=== PATIENT | female | born 1940 | race Caucasian/White ===

== ENCOUNTER → 2017-11-29 | Outpatient (CLI) | payer BC | END | disposition home or self-care (01) | LOC: HKI 11:04 | DX: M17.0 Bilateral primary osteoarthritis of knee (principal) | CPT/HCPCS: G0463 ==

== ENCOUNTER 2017-12-17 10:56 | Inpatient (IN) | payer BC ==
[2017-12-23] MEDS: CEFAZOLIN 2 GM/50 ML (PMX) 50 ML IVPB (06:00)
[2017-12-23] MEDS: TRANEXAMIC ACID 1,000 MG in NS 100 ML INTRA-OP X1 IVPB (06:00)
[2017-12-23] MEDS: LACTATED RINGER'S 1,000 ML IV* (06:00)
[2017-12-23] MEDS: TRANEXAMIC ACID 1,000 MG in NS 100 ML PRE-OP X1 IVPB (06:00)
[2017-12-23] MEDS: DEXAMETHASONE 4 MG/ML 1 ML INJ IV (07:28)
[2017-12-23] MEDS: ACETAMINOPHEN 1000MG/100ML IV 100 ML IVPB (07:29)
[2017-12-23] MEDS: ASPIRIN (EC) 325 MG TAB PO (08:00)
[2017-12-23] MEDS ORDERED: NA PHOSPHATE/BIPHOS 133 ML ENEMA PR (08:00)
[2017-12-23] MEDS ORDERED: NALOXONE (0.4 MG/ML) INJ IV (08:00)
[2017-12-23] MEDS: DOCUSATE SODIUM 100 MG CAP PO (08:00)
[2017-12-23] MEDS: CELECOXIB 100 MG CAP PO ×2 (09:00→22:40)
[2017-12-23] MEDS ORDERED: MIDAZOLAM 1 MG/ML 2 ML INJ (09:09)
[2017-12-23] MEDS ORDERED: morphine SULFATE/PF (10 MG/10 ML) INJ (09:09)
[2017-12-23] MEDS ORDERED: BUPIVACAINE 0.75%/DEXT (SPINAL) 2 ML INJ (09:30)
[2017-12-23] MEDS: POLYMYXIN/BACITRACIN 1L IRRIG IRR (10:08)
[2017-12-23] MEDS ORDERED: hydrALAzine 20 MG INJ (10:09)
[2017-12-23] MEDS ORDERED: METOPROLOL 5 MG INJ (10:09)
[2017-12-23] MEDS ORDERED: FENTAnyl 50 MCG/ML VIAL ×3 (10:13→11:51)
[2017-12-23] MEDS ORDERED: ETOMIDATE 20 MG INJ (11:19)
[2017-12-23] MEDS ORDERED: DEXAMETHASONE 4 MG/ML 1 ML INJ (11:19)
[2017-12-23] MEDS ORDERED: METOCLOPRAMIDE 10 MG INJ (11:19)
[2017-12-23] MEDS ORDERED: ROCURONIUM 50 MG INJ (11:19)
[2017-12-23] MEDS ORDERED: LIDOCAINE 2% (SDV) 5 ML INJ (11:19)
[2017-12-23] MEDS ORDERED: ONDANSETRON 4 MG INJ (11:19)
[2017-12-23] MEDS ORDERED: CEFAZOLIN 1 GM INJ (11:23)
[2017-12-23] MEDS ORDERED: ROPIVACAINE 0.5 % 30 ML VIAL (11:24)
[2017-12-23] MEDS ORDERED: KETOROLAC 30 MG INJ (11:43)
[2017-12-23] MEDS ORDERED: FENTAnyl 50 MCG/ML VIAL IV ×2 (12:30)
[2017-12-23] MEDS ORDERED: hydrALAzine 20 MG INJ IV (12:30)
[2017-12-23] MEDS ORDERED: LORAZEPAM 2 MG INJ IV (12:30)
[2017-12-23] MEDS ORDERED: DIPHENHYDRAMINE 50 MG INJ IV (12:30)
[2017-12-23] MEDS ORDERED: ONDANSETRON 4 MG INJ IV (12:30)
[2017-12-23] MEDS ORDERED: METOCLOPRAMIDE 10 MG INJ IV (12:30)
[2017-12-23] MEDS ORDERED: HYDROmorphONE 1 MG/5 ML IV SYRINGE IV (12:30)
[2017-12-23] MEDS ORDERED: LABETALOL HCL 20MG INJ IV (12:30)
[2017-12-23] MEDS: HYDROmorphONE 1 MG/5 ML IV SYRINGE IV (12:41)
[2017-12-23] MEDS: ONDANSETRON 4 MG INJ IV ×3 (14:00→20:43)
[2017-12-23] MEDS: CEFAZOLIN 1 GM/50 ML (PMX) 50 ML IVPB ×2 (14:11→22:40)
[2017-12-23] MEDS: SOD CHLORIDE 0.9% 1,000 ML IV ×2 (14:11→20:20)
[2017-12-23] MEDS: HYDROmorphONE 2 MG TAB PO ×3 (14:11→22:40)
[2017-12-23] MEDS: FLUTICASONE/VILANTEROL 100-25 INH (22:41)
[2017-12-24] MEDS: ONDANSETRON 4 MG INJ IV (02:00)
[2017-12-24] MEDS: SOD CHLORIDE 0.9% 1,000 ML IV ×2 (04:04→21:20)
[2017-12-24 05:00] LABS: ADD MAN DIFF? NO
[2017-12-24 05:13] LABS: BASOPHILS % 0.2 % (0.0-2.0); EOSINOPHILS % 0.1 % (0.0-7.0); HEMATOCRIT 37.4 % (37.0-47.0); HEMOGLOBIN 11.7 g/dl (12.0-16.0); LYMPHOCYTES # 1.2 10^3/ul (0.8-2.9); LYMPHOCYTES % 11.1 % (15.0-51.0); MEAN CORPUSCULAR HEMOGLOBIN 29.3 pg (29.0-33.0); MEAN CORPUSCULAR HGB CONC 31.3 g/dl (32.0-37.0); MEAN CORPUSCULAR VOLUME 93.5 fl (82.0-101.0); MONOCYTE # 0.9 10^3/ul (0.3-0.9); MONOCYTES % 8.7 % (0.0-11.0); NEUTROPHIL # 8.5 10^3/ul (1.6-7.5); NEUTROPHILS % 79.5 % (39.0-77.0); PLATELET COUNT 275 10^3/UL (140-415); RED CELL DISTRIBUTION WIDTH 14.4 % (11.5-14.5)
[2017-12-24 05:13] LABS: WHITE BLOOD COUNT 10.6 10^3/ul (4.8-10.8)
[2017-12-24 05:58] LABS: ANION GAP 13 (8-16); BLOOD UREA NITROGEN 14 mg/dl (7-20); CARBON DIOXIDE 28 mmol/L (21-31); CHLORIDE 109 mmol/L (97-110); CREATININE 0.71 mg/dl (0.44-1.00); GLUCOSE 112 mg/dl (70-220); POTASSIUM 4.7 mmol/L (3.5-5.1); SODIUM 145 mmol/L (135-144)
[2017-12-24] MEDS: LEVOTHYROXINE 137 MCG TAB PO (06:30)
[2017-12-24] MEDS: PANTOPRAZOLE (EC) 40 MG TAB PO (06:30)
[2017-12-24] MEDS: CEFAZOLIN 1 GM/50 ML (PMX) 50 ML IVPB (06:30)
[2017-12-24] MEDS: HYDROmorphONE 2 MG TAB PO ×2 (06:50→10:31)
[2017-12-24] MEDS: DOCUSATE SODIUM 100 MG CAP PO ×2 (08:53→21:07)
[2017-12-24] MEDS: CELECOXIB 100 MG CAP PO ×2 (08:53→21:07)
[2017-12-24] MEDS: FERROUS FUMARATE (SR) TAB PO ×2 (08:53→21:07)
[2017-12-24] MEDS: ASPIRIN (EC) 325 MG TAB PO (08:54)
[2017-12-24] MEDS: SENNA/DOCUSATE NA (8.6MG/50MG) TAB PO (08:54)
[2017-12-24] MEDS: LOSARTAN 25 MG TAB PO (08:55)
[2017-12-24] MEDS: HYDROmorphONE 4 MG TAB PO ×3 (13:28→21:46)
[2017-12-24] MEDS ORDERED: FLUTICASONE/VILANTEROL 100-25 INH (21:00)
[2017-12-24] MEDS: VILANTEROL INH (21:08)
[2017-12-24] MEDS: FLUTICASONE INH (21:08)
[2017-12-24] MEDS: DIPHENHYDRAMINE 50 MG INJ IV (21:46)
[2017-12-25 05:08] LABS: ADD MAN DIFF? NO
[2017-12-25] MEDS: HYDROmorphONE 4 MG TAB PO ×2 (05:14→09:01)
[2017-12-25] MEDS: PANTOPRAZOLE (EC) 40 MG TAB PO (05:14)
[2017-12-25 05:21] LABS: WHITE BLOOD COUNT 7.8 10^3/ul (4.8-10.8)
[2017-12-25 05:21] LABS: BASOPHIL # 0.1 10^3/ul (0.0-0.1); BASOPHILS % 0.8 % (0.0-2.0); EOSINOPHILS # 0.1 10^3/ul (0.0-0.5); EOSINOPHILS % 0.8 % (0.0-7.0); HEMATOCRIT 36.6 % (37.0-47.0); HEMOGLOBIN 11.6 g/dl (12.0-16.0); LYMPHOCYTES # 0.9 10^3/ul (0.8-2.9); LYMPHOCYTES % 11.4 % (15.0-51.0); MEAN CORPUSCULAR HEMOGLOBIN 29.5 pg (29.0-33.0); MEAN CORPUSCULAR HGB CONC 31.7 g/dl (32.0-37.0); MEAN CORPUSCULAR VOLUME 93.1 fl (82.0-101.0); MEAN PLATELET VOLUME 9.3 fl (7.4-10.4); MONOCYTE # 0.8 10^3/ul (0.3-0.9); MONOCYTES % 10.1 % (0.0-11.0); NEUTROPHILS % 76.6 % (39.0-77.0); PLATELET COUNT 249 10^3/UL (140-415); RED BLOOD COUNT 3.93 10^6/ul (4.20-5.40); RED CELL DISTRIBUTION WIDTH 14.8 % (11.5-14.5)
[2017-12-25 05:48] LABS: ANION GAP 10 (8-16); BLOOD UREA NITROGEN 11 mg/dl (7-20); CALCIUM 8.1 mg/dl (8.4-10.2); CARBON DIOXIDE 31 mmol/L (21-31); CHLORIDE 107 mmol/L (97-110); CREATININE 0.66 mg/dl (0.44-1.00); GLUCOSE 126 mg/dl (70-220); POTASSIUM 4.4 mmol/L (3.5-5.1); SODIUM 144 mmol/L (135-144)
[2017-12-25] MEDS: LEVOTHYROXINE 137 MCG TAB PO (06:51)
[2017-12-25] MEDS: CELECOXIB 100 MG CAP PO ×2 (08:59→21:59)
[2017-12-25] MEDS: LOSARTAN 25 MG TAB PO (09:00)
[2017-12-25] MEDS: DOCUSATE SODIUM 100 MG CAP PO ×2 (09:00→21:58)
[2017-12-25] MEDS: FERROUS FUMARATE (SR) TAB PO ×2 (09:01→21:59)
[2017-12-25] MEDS: ASPIRIN (EC) 325 MG TAB PO (09:01)
[2017-12-25] MEDS: SOD CHLORIDE 0.9% 1,000 ML IV ×2 (09:50→22:20)
[2017-12-25] MEDS: HYDROmorphONE 2 MG TAB PO ×3 (12:56→19:04)
[2017-12-25] MEDS: VILANTEROL INH (21:59)
[2017-12-25] MEDS: FLUTICASONE INH (21:59)
[2017-12-26] MEDS: HYDROmorphONE 2 MG TAB PO ×5 (02:16→21:41)
[2017-12-26 05:04] LABS: ADD MAN DIFF? NO
[2017-12-26 05:20] LABS: WHITE BLOOD COUNT 10.3 10^3/ul (4.8-10.8)
[2017-12-26 05:20] LABS: BASOPHIL # 0.1 10^3/ul (0.0-0.1); BASOPHILS % 0.6 % (0.0-2.0); EOSINOPHILS # 0.2 10^3/ul (0.0-0.5); EOSINOPHILS % 1.9 % (0.0-7.0); HEMATOCRIT 37.7 % (37.0-47.0); HEMOGLOBIN 11.8 g/dl (12.0-16.0); LYMPHOCYTES # 0.8 10^3/ul (0.8-2.9); MEAN CORPUSCULAR HEMOGLOBIN 29.5 pg (29.0-33.0); MEAN CORPUSCULAR HGB CONC 31.3 g/dl (32.0-37.0); MEAN CORPUSCULAR VOLUME 94.3 fl (82.0-101.0); MEAN PLATELET VOLUME 9.2 fl (7.4-10.4); MONOCYTE # 0.9 10^3/ul (0.3-0.9); MONOCYTES % 8.9 % (0.0-11.0); NEUTROPHIL # 8.3 10^3/ul (1.6-7.5); NEUTROPHILS % 80.2 % (39.0-77.0); PLATELET COUNT 276 10^3/UL (140-415); RED CELL DISTRIBUTION WIDTH 14.4 % (11.5-14.5)
[2017-12-26 05:37] LABS: ANION GAP 13 (8-16); BLOOD UREA NITROGEN 9 mg/dl (7-20); CALCIUM 8.4 mg/dl (8.4-10.2); CARBON DIOXIDE 29 mmol/L (21-31); CHLORIDE 105 mmol/L (97-110); CREATININE 0.57 mg/dl (0.44-1.00); GLUCOSE 120 mg/dl (70-220); POTASSIUM 4.2 mmol/L (3.5-5.1); SODIUM 143 mmol/L (135-144)
[2017-12-26] MEDS: PANTOPRAZOLE (EC) 40 MG TAB PO (06:43)
[2017-12-26] MEDS: LEVOTHYROXINE 137 MCG TAB PO (06:47)
[2017-12-26] MEDS: DOCUSATE SODIUM 100 MG CAP PO ×2 (08:34→20:23)
[2017-12-26] MEDS: CELECOXIB 100 MG CAP PO ×2 (08:34→20:23)
[2017-12-26] MEDS: ASPIRIN (EC) 325 MG TAB PO (08:35)
[2017-12-26] MEDS: FERROUS FUMARATE (SR) TAB PO ×2 (08:35→20:22)
[2017-12-26] MEDS: LOSARTAN 25 MG TAB PO (08:35)
[2017-12-26] MEDS: SOD CHLORIDE 0.9% 1,000 ML IV ×2 (08:40→23:20)
[2017-12-26] MEDS: SENNA/DOCUSATE NA (8.6MG/50MG) TAB PO (09:53)
[2017-12-26] MEDS: BETHANECHOL 25 MG TAB PO (09:54)
[2017-12-26 10:27] LABS: ADD UMIC YES; UR ASCORBIC ACID NEGATIVE (NEGATIVE); UR BACTERIA FEW /HPF (NONE SEEN); UR BILIRUBIN (Dip) NEGATIVE (NEGATIVE); UR BLOOD (Dip) 3+ mg/dL (NEGATIVE); UR CLARITY CLEAR (CLEAR); UR COLOR YELLOW (YELLOW); UR GLUCOSE (Dip) 1+ mg/dL (NEGATIVE); UR KETONES (Dip) 1+ mg/dL (NEGATIVE); UR LEUKOCYTE ESTERASE (Dip) NEGATIVE Leu/ul (NEGATIVE); UR MUCUS FEW /HPF (NONE SEEN); UR NITRITE (Dip) NEGATIVE (NEGATIVE); UR RBC 118 /HPF (0-5); UR SPECIFIC GRAVITY (Dip) 1.017 (1.003-1.030); UR TOTAL PROTEIN (Dip) 2+ mg/dl (NEGATIVE); UR UROBILINOGEN (Dip) 1+ mg/dL (NEGATIVE); UR WBC 3 /HPF (0-5)
[2017-12-26] MEDS: BISACODYL 10 MG SUPP PR (17:35)
[2017-12-26] MEDS: MAGNESIUM HYDROXIDE 30ML CUP PO (20:22)
[2017-12-26] MEDS: VILANTEROL INH (20:24)
[2017-12-26] MEDS: FLUTICASONE INH (20:24)
[2017-12-27] MEDS: HYDROmorphONE 2 MG TAB PO ×5 (04:15→21:56)
[2017-12-27 05:12] LABS: ADD MAN DIFF? NO
[2017-12-27 05:28] LABS: WHITE BLOOD COUNT 10.3 10^3/ul (4.8-10.8)
[2017-12-27 05:28] LABS: BASOPHIL # 0.1 10^3/ul (0.0-0.1); BASOPHILS % 0.6 % (0.0-2.0); EOSINOPHILS # 0.3 10^3/ul (0.0-0.5); EOSINOPHILS % 2.8 % (0.0-7.0); HEMATOCRIT 35.5 % (37.0-47.0); HEMOGLOBIN 11.4 g/dl (12.0-16.0); LYMPHOCYTES % 9.8 % (15.0-51.0); MEAN CORPUSCULAR HEMOGLOBIN 29.7 pg (29.0-33.0); MEAN CORPUSCULAR HGB CONC 32.1 g/dl (32.0-37.0); MEAN CORPUSCULAR VOLUME 92.4 fl (82.0-101.0); MEAN PLATELET VOLUME 9.5 fl (7.4-10.4); MONOCYTE # 0.9 10^3/ul (0.3-0.9); MONOCYTES % 8.7 % (0.0-11.0); NEUTROPHILS % 77.6 % (39.0-77.0); PLATELET COUNT 299 10^3/UL (140-415); RED BLOOD COUNT 3.84 10^6/ul (4.20-5.40); RED CELL DISTRIBUTION WIDTH 14.3 % (11.5-14.5)
[2017-12-27] MEDS: LEVOTHYROXINE 137 MCG TAB PO (05:53)
[2017-12-27] MEDS: PANTOPRAZOLE (EC) 40 MG TAB PO (05:53)
[2017-12-27 05:59] LABS: ANION GAP 10 (8-16); BLOOD UREA NITROGEN 13 mg/dl (7-20); CALCIUM 8.3 mg/dl (8.4-10.2); CARBON DIOXIDE 29 mmol/L (21-31); CHLORIDE 103 mmol/L (97-110); CREATININE 0.52 mg/dl (0.44-1.00); GLUCOSE 129 mg/dl (70-220); POTASSIUM 4.1 mmol/L (3.5-5.1); SODIUM 138 mmol/L (135-144)
[2017-12-27] MEDS: CELECOXIB 100 MG CAP PO ×2 (09:25→20:39)
[2017-12-27] MEDS: ASPIRIN (EC) 325 MG TAB PO (09:25)
[2017-12-27] MEDS: FERROUS FUMARATE (SR) TAB PO ×2 (09:25→20:39)
[2017-12-27] MEDS: LOSARTAN 25 MG TAB PO (09:26)
[2017-12-27] MEDS: SOD CHLORIDE 0.9% 1,000 ML IV (11:50)
[2017-12-27] MEDS: ATORVASTATIN 80 MG TAB PO (13:31)
[2017-12-27] MEDS: VILANTEROL INH (20:41)
[2017-12-27] MEDS: FLUTICASONE INH (20:41)
[2017-12-28] MEDS: SOD CHLORIDE 0.9% 1,000 ML IV ×2 (00:20→12:50)
[2017-12-28 04:49] LABS: ADD MAN DIFF? NO
[2017-12-28 04:51] LABS: BASOPHIL # 0.1 10^3/ul (0.0-0.1); BASOPHILS % 0.7 % (0.0-2.0); EOSINOPHILS # 0.4 10^3/ul (0.0-0.5); EOSINOPHILS % 4.4 % (0.0-7.0); HEMATOCRIT 36.7 % (37.0-47.0); HEMOGLOBIN 11.8 g/dl (12.0-16.0); LYMPHOCYTES % 11.1 % (15.0-51.0); MEAN CORPUSCULAR HEMOGLOBIN 29.9 pg (29.0-33.0); MEAN CORPUSCULAR HGB CONC 32.2 g/dl (32.0-37.0); MEAN CORPUSCULAR VOLUME 93.1 fl (82.0-101.0); MEAN PLATELET VOLUME 8.9 fl (7.4-10.4); MONOCYTE # 0.8 10^3/ul (0.3-0.9); MONOCYTES % 9.2 % (0.0-11.0); NEUTROPHIL # 6.8 10^3/ul (1.6-7.5); NEUTROPHILS % 74.2 % (39.0-77.0); PLATELET COUNT 343 10^3/UL (140-415); RED BLOOD COUNT 3.94 10^6/ul (4.20-5.40); RED CELL DISTRIBUTION WIDTH 14.3 % (11.5-14.5)
[2017-12-28 04:51] LABS: WHITE BLOOD COUNT 9.2 10^3/ul (4.8-10.8)
[2017-12-28 05:15] LABS: ANION GAP 9 (8-16); BLOOD UREA NITROGEN 11 mg/dl (7-20); CALCIUM 8.7 mg/dl (8.4-10.2); CARBON DIOXIDE 30 mmol/L (21-31); CHLORIDE 105 mmol/L (97-110); CREATININE 0.59 mg/dl (0.44-1.00); GLUCOSE 131 mg/dl (70-220); POTASSIUM 4.3 mmol/L (3.5-5.1); SODIUM 140 mmol/L (135-144)
[2017-12-28] MEDS: PANTOPRAZOLE (EC) 40 MG TAB PO (06:18)
[2017-12-28] MEDS ORDERED: PATIENT'S OWN MEDICATION PO (07:00)
[2017-12-28] MEDS ORDERED: LEVOTHYROXINE 137 MCG TAB PO (07:00)
[2017-12-28] MEDS: FERROUS FUMARATE (SR) TAB PO (08:11)
[2017-12-28] MEDS: LEVOTHYROXINE 137 MCG PO (08:11)
[2017-12-28] MEDS: LOSARTAN 25 MG TAB PO (08:12)
[2017-12-28] MEDS: ATORVASTATIN 80 MG TAB PO (08:12)
[2017-12-28] MEDS: ASPIRIN (EC) 325 MG TAB PO (08:12)
[2017-12-28] MEDS: CELECOXIB 100 MG CAP PO (08:13)
[2017-12-28] MEDS: HYDROmorphONE 2 MG TAB PO ×2 (09:02→12:46)
[2017-12-28] MEDS: ACETAMINOPHEN 500 MG TAB PO (14:55)
[2017-12-28] MEDS ORDERED: CELECOXIB 200 MG CAP PO (21:00)
== END 2017-12-28 16:55 | disposition home or self-care (01) | DRG 470 ==
LOC: REC 10:56 → MS1 12-23 13:44
PROC: 0SRD0JZ Replacement of Left Knee Joint with Synthetic Substitute, Open Approach (ICD-10-PCS; principal; 2017-12-23 08:30)
DX: M17.12 Unilateral primary osteoarthritis, left knee (principal); J45.30 Mild persistent asthma, uncomplicated; I10 Essential (primary) hypertension; E78.5 Hyperlipidemia, unspecified; E03.9 Hypothyroidism, unspecified; E66.01 Morbid (severe) obesity due to excess calories; Z68.36 Body mass index [BMI] 36.0-36.9, adult; J45.909 Unspecified asthma, uncomplicated
CPT/HCPCS: 73560; 80048; 81001; 85025; 86850; 86900; 86901; 87081; 87086; 97110; 97116; 97161; 97167; 97530; 97535; 99217

== ENCOUNTER → 2017-12-20 | Outpatient (CLI) | payer BC | END | disposition home or self-care (01) | LOC: HKI 11:15 | DX: Z01.818 Encounter for other preprocedural examination (principal) | CPT/HCPCS: G0463 ==

== ENCOUNTER → 2018-01-03 | Outpatient (CLI) | payer BC | END | disposition home or self-care (01) | LOC: HKI 11:28 | DX: Z47.1 Aftercare following joint replacement surgery (principal); Z96.652 Presence of left artificial knee joint | CPT/HCPCS: 73560; 73560-LT ==

== ENCOUNTER → 2018-01-31 | Outpatient (CLI) | payer BC | END | disposition home or self-care (01) | LOC: HKI 11:21 | DX: Z09 Encounter for follow-up examination after completed treatment for conditions other than malignant neoplasm (principal); Z96.652 Presence of left artificial knee joint | CPT/HCPCS: 73560; 73560-LT ==

== ENCOUNTER → 2018-06-27 | Outpatient (CLI) | payer BC | END | disposition home or self-care (01) | LOC: HKI 11:41 | DX: Z01.818 Encounter for other preprocedural examination (principal); M17.11 Unilateral primary osteoarthritis, right knee | CPT/HCPCS: G0463 ==

== ENCOUNTER 2018-07-07 06:32 | Inpatient (IN) | payer BC ==
[2018-07-07] MEDS: CEFAZOLIN 2 GM/50 ML (PMX) 50 ML IVPB ×3 (07:00→23:30)
[2018-07-07] MEDS ORDERED: CEFAZOLIN 1 GM INJ (07:00)
[2018-07-07] MEDS ORDERED: ACETAMINOPHEN 1000MG/100ML IV 100 ML IVPB (07:42)
[2018-07-07] MEDS: LACTATED RINGER'S 1,000 ML IV ×5 (07:45→20:45)
[2018-07-07] MEDS: DEXAMETHASONE 4 MG/ML 1 ML INJ IV (07:45)
[2018-07-07] MEDS: ACETAMINOPHEN 1000MG/100ML IV 100 ML IVPB (08:00)
[2018-07-07] MEDS: TRANEXAMIC ACID 1GM/100ML(PMX) 100 ML IVPB ×2 (08:00→11:28)
[2018-07-07] MEDS ORDERED: ONDANSETRON 4 MG INJ ×2 (08:47→10:36)
[2018-07-07] MEDS ORDERED: DEXAMETHASONE 4 MG/ML 5 ML INJ (08:47)
[2018-07-07] MEDS ORDERED: FENTAnyl 50 MCG/ML VIAL (08:47)
[2018-07-07] MEDS ORDERED: MIDAZOLAM 1 MG/ML 2 ML INJ (08:47)
[2018-07-07] MEDS ORDERED: morphine SULFATE/PF (10 MG/10 ML) INJ (08:47)
[2018-07-07] MEDS ORDERED: METOCLOPRAMIDE 10 MG INJ (08:47)
[2018-07-07] MEDS ORDERED: PROPOFOL 20 ML (08:47)
[2018-07-07] MEDS: POLYMYXIN B 500000 UNIT INJ (09:29)
[2018-07-07] MEDS: BACITRACIN 50000 UNITS INJ (09:29)
[2018-07-07] MEDS ORDERED: NACL 0.9% 3 ML SYG IV (10:30)
[2018-07-07] MEDS ORDERED: KETOROLAC 15 MG INJ IV (10:30)
[2018-07-07] MEDS ORDERED: MAGNESIUM HYDROXIDE 30ML CUP PO (10:30)
[2018-07-07] MEDS ORDERED: HYDROmorphONE 2 MG/ML SYG (10:30)
[2018-07-07] MEDS ORDERED: NALOXONE (0.4 MG/ML) INJ IV (10:30)
[2018-07-07] MEDS ORDERED: ROCURONIUM 50 MG INJ (10:35)
[2018-07-07] MEDS ORDERED: SCOPOLAMINE 1.5 MG PATCH (10:54)
[2018-07-07] MEDS ORDERED: OXYCODONE/ACETAMINOPHEN (5/325) TAB PO (11:00)
[2018-07-07] MEDS ORDERED: ONDANSETRON 4 MG INJ IV (11:00)
[2018-07-07] MEDS ORDERED: LABETALOL HCL 20MG INJ IV (11:00)
[2018-07-07] MEDS ORDERED: DIPHENHYDRAMINE 50 MG INJ IV (11:00)
[2018-07-07] MEDS ORDERED: MEPERIDINE 25 MG INJ IV (11:00)
[2018-07-07] MEDS ORDERED: HYDROmorphONE 1 MG/5 ML IV SYRINGE IV ×2 (11:00)
[2018-07-07] MEDS ORDERED: hydrALAzine 20 MG INJ IV (11:00)
[2018-07-07] MEDS ORDERED: ROPIVACAINE 0.2% 20 ML VIAL (11:26)
[2018-07-07] MEDS: TRANEXAMIC ACID 1GM/100ML(PMX) 100 ML (11:28)
[2018-07-07] MEDS: GABAPENTIN 100 MG CAP PO ×2 (13:00→20:49)
[2018-07-07] MEDS ORDERED: TRANEXAMIC ACID 1GM/100ML(PMX) 100 ML (13:28)
[2018-07-07] MEDS: OXYCODONE/ACETAMINOPHEN (5/325) TAB PO (13:59)
[2018-07-07] MEDS: HYDROmorphONE 1 MG/5 ML IV SYRINGE IV (14:00)
[2018-07-08] MEDS: oxyCODONE 5 MG TAB PO ×5 (01:57→23:01)
[2018-07-08 05:42] LABS: ADD MAN DIFF? NO
[2018-07-08 05:44] LABS: BASOPHILS % 0.1 % (0.0-2.0); HEMATOCRIT 40.2 % (37.0-47.0); HEMOGLOBIN 12.4 g/dl (12.0-16.0); LYMPHOCYTES # 0.9 10^3/ul (0.8-2.9); LYMPHOCYTES % 10.2 % (15.0-51.0); MEAN CORPUSCULAR HEMOGLOBIN 29.7 pg (29.0-33.0); MEAN CORPUSCULAR HGB CONC 30.8 g/dl (32.0-37.0); MEAN CORPUSCULAR VOLUME 96.2 fl (82.0-101.0); MEAN PLATELET VOLUME 9.1 fl (7.4-10.4); MONOCYTE # 0.7 10^3/ul (0.3-0.9); NEUTROPHIL # 7.4 10^3/ul (1.6-7.5); NEUTROPHILS % 81.5 % (39.0-77.0); PLATELET COUNT 285 10^3/UL (140-415); RED BLOOD COUNT 4.18 10^6/ul (4.20-5.40); RED CELL DISTRIBUTION WIDTH 13.4 % (11.5-14.5)
[2018-07-08 05:59] LABS: ANION GAP 9 (5-13); BLOOD UREA NITROGEN 15 mg/dl (7-20); CALCIUM 8.7 mg/dl (8.4-10.2); CARBON DIOXIDE 29 mmol/L (21-31); CHLORIDE 104 mmol/L (97-110); CREATININE 0.67 mg/dl (0.44-1.00); GLUCOSE 121 mg/dl (70-220); POTASSIUM 4.9 mmol/L (3.5-5.1); SODIUM 142 mmol/L (135-144)
[2018-07-08] MEDS: CELECOXIB 100 MG CAP PO ×2 (09:00→21:21)
[2018-07-08] MEDS: ASPIRIN (EC) 81 MG TAB PO ×2 (09:00→21:21)
[2018-07-08] MEDS: GABAPENTIN 100 MG CAP PO ×3 (09:00→21:21)
[2018-07-08] MEDS: DOCUSATE SODIUM 100 MG CAP PO ×2 (09:01→21:21)
[2018-07-08] MEDS: CEFAZOLIN 2 GM/50 ML (PMX) 50 ML IVPB (09:01)
[2018-07-08] MEDS: FLUTICASONE/VILANTEROL 100-25 INH (16:45)
[2018-07-08] MEDS: LOSARTAN 25 MG TAB PO (16:45)
[2018-07-08] MEDS: SYNTHROID 137MCG TABLET PO (16:45)
[2018-07-08] MEDS ORDERED: NON-FORMULARY/PATIENT OWN MED (Rosuvastatin Calcium* (Crestor*) 20 MG) PO (21:00)
[2018-07-08] MEDS: ATORVASTATIN 80 MG TAB PO (21:21)
[2018-07-09] MEDS: oxyCODONE 5 MG TAB PO ×2 (04:16→10:03)
[2018-07-09 05:55] LABS: ADD MAN DIFF? NO
[2018-07-09 05:57] LABS: BASOPHILS % 0.3 % (0.0-2.0); EOSINOPHILS % 0.6 % (0.0-7.0); HEMATOCRIT 36.1 % (37.0-47.0); HEMOGLOBIN 11.1 g/dl (12.0-16.0); LYMPHOCYTES % 16.5 % (15.0-51.0); MEAN CORPUSCULAR HEMOGLOBIN 29.4 pg (29.0-33.0); MEAN CORPUSCULAR HGB CONC 30.7 g/dl (32.0-37.0); MEAN CORPUSCULAR VOLUME 95.5 fl (82.0-101.0); MEAN PLATELET VOLUME 9.4 fl (7.4-10.4); MONOCYTE # 0.6 10^3/ul (0.3-0.9); MONOCYTES % 8.9 % (0.0-11.0); NEUTROPHIL # 4.6 10^3/ul (1.6-7.5); NEUTROPHILS % 73.4 % (39.0-77.0); PLATELET COUNT 233 10^3/UL (140-415); RED BLOOD COUNT 3.78 10^6/ul (4.20-5.40); RED CELL DISTRIBUTION WIDTH 13.7 % (11.5-14.5)
[2018-07-09 05:57] LABS: WHITE BLOOD COUNT 6.2 10^3/ul (4.8-10.8)
[2018-07-09] MEDS: PANTOPRAZOLE (EC) 40 MG TAB PO (06:09)
[2018-07-09] MEDS: SYNTHROID 137MCG TABLET PO (06:09)
[2018-07-09 07:00] LABS: ANION GAP 5 (5-13); BLOOD UREA NITROGEN 17 mg/dl (7-20); CALCIUM 8.3 mg/dl (8.4-10.2); CARBON DIOXIDE 32 mmol/L (21-31); CHLORIDE 99 mmol/L (97-110); CREATININE 0.64 mg/dl (0.44-1.00); GLUCOSE 128 mg/dl (70-220); SODIUM 136 mmol/L (135-144)
[2018-07-09] MEDS ORDERED: LEVOTHYROXINE 137 MCG TAB PO (07:00)
[2018-07-09] MEDS: DOCUSATE SODIUM 100 MG CAP PO ×2 (10:04→21:29)
[2018-07-09] MEDS: ASPIRIN (EC) 81 MG TAB PO ×2 (10:04→21:29)
[2018-07-09] MEDS: GABAPENTIN 100 MG CAP PO ×3 (10:04→21:29)
[2018-07-09] MEDS: CELECOXIB 100 MG CAP PO ×2 (10:04→21:29)
[2018-07-09] MEDS: LOSARTAN 25 MG TAB PO (10:06)
[2018-07-09] MEDS: FLUTICASONE/VILANTEROL 100-25 INH (10:10)
[2018-07-09] MEDS: ONDANSETRON 4 MG INJ IV (13:56)
[2018-07-09] MEDS: HYDROmorphONE 1 MG/ML SYG IV (15:44)
[2018-07-09] MEDS: ATORVASTATIN 80 MG TAB PO (21:28)
[2018-07-10 05:22] LABS: ADD MAN DIFF? NO
[2018-07-10 05:25] LABS: WHITE BLOOD COUNT 7.2 10^3/ul (4.8-10.8)
[2018-07-10 05:25] LABS: BASOPHIL # 0.1 10^3/ul (0.0-0.1); BASOPHILS % 0.7 % (0.0-2.0); EOSINOPHILS % 0.6 % (0.0-7.0); HEMATOCRIT 33.3 % (37.0-47.0); HEMOGLOBIN 10.3 g/dl (12.0-16.0); LYMPHOCYTES % 14.5 % (15.0-51.0); MEAN CORPUSCULAR HEMOGLOBIN 29.9 pg (29.0-33.0); MEAN CORPUSCULAR HGB CONC 30.9 g/dl (32.0-37.0); MEAN CORPUSCULAR VOLUME 96.5 fl (82.0-101.0); MEAN PLATELET VOLUME 9.5 fl (7.4-10.4); MONOCYTE # 0.9 10^3/ul (0.3-0.9); MONOCYTES % 12.6 % (0.0-11.0); NEUTROPHIL # 5.1 10^3/ul (1.6-7.5); NEUTROPHILS % 70.9 % (39.0-77.0); PLATELET COUNT 223 10^3/UL (140-415); RED BLOOD COUNT 3.45 10^6/ul (4.20-5.40); RED CELL DISTRIBUTION WIDTH 13.6 % (11.5-14.5)
[2018-07-10] MEDS: SYNTHROID 137MCG TABLET PO (05:44)
[2018-07-10] MEDS: PANTOPRAZOLE (EC) 40 MG TAB PO (05:44)
[2018-07-10 06:13] LABS: ANION GAP 6 (5-13); BLOOD UREA NITROGEN 21 mg/dl (7-20); CALCIUM 8.2 mg/dl (8.4-10.2); CARBON DIOXIDE 34 mmol/L (21-31); CHLORIDE 98 mmol/L (97-110); CREATININE 0.82 mg/dl (0.44-1.00); GLUCOSE 122 mg/dl (70-220); POTASSIUM 4.8 mmol/L (3.5-5.1); SODIUM 138 mmol/L (135-144)
[2018-07-10] MEDS: DOCUSATE SODIUM 100 MG CAP PO (09:00)
[2018-07-10] MEDS: LOSARTAN 25 MG TAB PO (09:00)
[2018-07-10] MEDS: CELECOXIB 100 MG CAP PO (09:26)
[2018-07-10] MEDS: ASPIRIN (EC) 81 MG TAB PO (09:26)
[2018-07-10] MEDS: GABAPENTIN 100 MG CAP PO ×2 (09:26→13:22)
[2018-07-10] MEDS: FLUTICASONE/VILANTEROL 100-25 INH (09:26)
== END 2018-07-10 17:10 | disposition home health service (06) | DRG 470 ==
LOC: REC 06:32 → MS1 14:15
PROC: 0SRC0J9 Replacement of Right Knee Joint with Synthetic Substitute, Cemented, Open Approach (ICD-10-PCS; principal; 2018-07-07 09:00)
DX: M17.11 Unilateral primary osteoarthritis, right knee (principal); I10 Essential (primary) hypertension; E03.9 Hypothyroidism, unspecified
CPT/HCPCS: 73560; 80048; 85025; 87081; 88304; 88311; 97110; 97116; 97161; 97530